=== PATIENT | male | born 1975 | race Caucasian/White ===

== ENCOUNTER 2025-04-04 08:21 | Emergency (ER) | payer BC ==
[~2025-04-04] VITALS: Ht 180.3 cm; Wt 100.0 kg
[2025-04-04 08:26] VITALS: O2SAT 97
[2025-04-04] MEDS: LIDOCAINE HCL 1% 20ML VIAL INFIL ONE (09:24)
[2025-04-04] MEDS: TETANUS, DIPHTHERIA, PERTUSSIS VAC/PF 0.5ML (>10YR OLD) IM ONE (09:26)
[2025-04-04] MEDS ORDERED: IBUP-2029 MT (09:36)
[2025-04-04 09:53] VITALS: BP 133/78; PULSE 88; RESP 18; TEMP 37; O2SAT 98
== END 2025-04-04 09:54 | disposition home or self-care (01) ==
LOC: ER 08:21
DX: S61.216A Laceration without foreign body of right little finger without damage to nail, initial encounter (principal); Z79.899 Other long term (current) drug therapy; W25.XXXA Contact with sharp glass, initial encounter; Y93.89 Activity, other specified; Y92.89 Other specified places as the place of occurrence of the external cause; Y99.8 Other external cause status
CPT/HCPCS: 99283; 73140; 90715; 12002; 90471; J2003

== ENCOUNTER 2025-04-12 09:16 | Emergency (ER) | payer BC ==
[~2025-04-12] VITALS: Ht 172.7 cm; Wt 87.0 kg
[~2025-04-12 09:16] MED LIST: IBUP-2029 MT
[2025-04-12 09:24] VITALS: O2SAT 98
[2025-04-12 09:42] VITALS: BP 148/85; PULSE 89; RESP 18; TEMP 37.1; O2SAT 99
== END 2025-04-12 10:50 | disposition home or self-care (01) ==
LOC: ER 09:16
DX: S61.216D Laceration without foreign body of right little finger without damage to nail, subsequent encounter (principal); X58.XXXD Exposure to other specified factors, subsequent encounter
CPT/HCPCS: 99282